=== PATIENT | female | born 1950 | race American Indian/Alaskan Native ===

== ENCOUNTER 2019-08-25 15:51 | Emergency (ER) | payer OTHER, MEDICARE ==
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
[2019-08-25 19:48] VITALS: BP 136/88
== END 2019-08-25 19:40 | disposition home or self-care (01) ==
LOC: ED 15:51
DX: M54.2 Cervicalgia (principal); M54.5 Low back pain; R51 Headache; I10 Essential (primary) hypertension; V49.49XA Driver injured in collision with other motor vehicles in traffic accident, initial encounter; Y93.89 Activity, other specified; Y92.410 Unspecified street and highway as the place of occurrence of the external cause; Y99.8 Other external cause status
CPT/HCPCS: 72040; 72100